=== PATIENT | female | born 1995 | race Caucasian/White ===

== ENCOUNTER 2021-02-27 17:45 | Emergency (ER) | payer MEDICAID, SELFPAY ==
[2021-02-27 18:02] VITALS: BP 108/72; PULSE 89; RESP 18; TEMP 36.9; O2SAT 97; BMI 27.3
--- NOTE | 2021-02-27 18:15 | ED_ITS ---
HPI - Recheck/Abnormal Lab/Rx General: Chief Complaint: Recheck/Abnormal Lab/Rx Stated Complaint: Havent had a period in 2 months Time Seen by Provider: 02/27/21 18:03 History of Present Illness: HPI narrative: 25-year-old female comes in today with complaints of no menstrual cycle in the last 2 months. Patient did have a positive home test last Saturday. Patient is concerned for a ectopic . Patient denies any pain or discomfort. Patient appears well. Patient did have a tubal ligation after her last delivery over March. Patient has had chronic pelvic pain for the last 6 months. Patient does report over the last 3 weeks some increase in right-sided pelvic discomfort. Review of Systems General: Reports: 10 or more systems reviewed and unremarkable except in HPI and below : Reports: other (Right-sided pelvic discomfort.) Physical Exam Const: COMMON NORMALS: patient oriented x3 GENERAL APPEARANCE: cooperative HENMT: COMMON NORMALS: normocephalic HEAD & SCALP: normocephalic Eye: GENERAL EYE: appearance normal, both eyes and all related structures Neck/C-Spine: COMMON NORMALS: full ROM Resp: COMMON NORMALS: normal respiratory effort EFFORT & INSPECTION: Yes able to speak in complete sentences Cardio: COMMON NORMALS: regular rate and regular rhythm RATE: regular rate RHYTHM: regular rhythm GI: OTHER: Tenderness noted in the suprapubic right lower pelvic area. : COMMON NORMALS: Yes no CVA tenderness BLADDER/KIDNEY EXAM: Yes no CVA tenderness Back/Pelvis: COMMON NORMALS: no CVA tenderness and thoracic and lumbar spine normal to inspection Extremity: COMMON NORMALS: normal to inspection Neuro: COMMON NORMALS: patient oriented x3 and moves all extremities Psych: COMMON NORMALS: mental status grossly normal and cooperative Skin: COMMON NORMALS: no rashes or lesions noted GENERAL SKIN EXAM: no rashes or lesions noted Course ED course: 1844, reviewed labs with patient reassuring that there is no sign of on her test in the emergency room. Patient is extremely worried and concerned about the right lower quadrant right pelvic pain. Patient reports discomfort since her surgery with increasing over the last 6 months. I recommended that we go ahead and do a CT scan of the abdomen pelvis for further evaluation. We also do some labs just to rule out any infection no other signs of abnormality. Vital Signs: Vital signs: Vital Signs Temperature 98.5 F 02/27/21 18:02 Pulse Rate 89 02/27/21 18:02 Respiratory Rate 18 02/27/21 18:02 Blood Pressure 108/72 02/27/21 18:02 Pulse Oximetry 97 02/27/21 18:02 MDM - Recheck/Abnormal Lab/Rx MDM Narrative: Medical decision making narrative: Patient comes in for no menstrual cycle in the last 2 months, right pelvic pain, and nausea. Patient was concerned that she may have had a ectopic due to having a recent tubal ligation in March of last year and having no period for the last 2 months with a positive home test. On exam abdomen is soft with some right lower quadrant abdominal tenderness. Vital signs are normal. Differential diagnosis includes but not limited to appendicitis, ovarian cyst, ectopic . hCG qualitative serum and urine were both negative. CMP and CBC were unremarkable. Urinalysis was negative for signs of infection. CT scan did show a 2.7 cm ovarian right cyst, and some inflammation of the small bowel. Believe patient probably has her pain due to her ovarian cyst which is also causing some irregularity in her menstrual cycles. Patient also has some enteritis which most likely is causing her nausea. I write for some Zofran to help with nausea, acetaminophen and ibuprofen for pain. Reviewed exam with patient with recommendations for follow-up. Patient reported understanding agreed to plan. Lab Data: Labs: Lab Results 02/27/21 02/27/21 02/27/21 18:25 18:25 19:26 WBC 8.3 10^3/uL 10^3/ uL (4.0-10.0) RBC 4.52 10^6/uL 10^6 /uL (4.1-5.3) Hgb 12.3 g/dL g/dL (11.5-15.3) Hct 38.4 % % (37.0-47.0) MCV 85.0 fl fl (81-99) MCH 27.2 pg L pg (28.0-34.0) MCHC 32.0 g/dL g/dL (30.0-36.0) RDW 14.0 % % (12.1-15.1) Plt Count 234 10^3/cmm 10^3 /cmm (130-400) MPV 12.2 fL H fL (7.4-10.4) Neut % (Auto) 64.2 % % Lymph % (Auto) 27.2 % % [place] % (Auto) 6.5 % % Eos % (Auto) 1.1 % % Baso % (Auto) 0.8 % % Neut # (Auto) 5.32 10^3/uL 10^3 /uL (1.8-7.7) Lymph # (Auto) 2.3 10^3/uL 10^3/ uL (0.8-4.8) [place] # (Auto) 0.5 10^3/uL 10^3/ uL (0.2-0.9) Eos # (Auto) 0.1 10^3/uL 10^3/ uL (0.0-0.8) Baso # (Auto) 0.1 10^3/uL 10^3/ uL (0.0-0.1) Nucleated RBC % (a uto) 0 % % Nucleated RBCs # 0.0 /100WBC /100W BC Sodium Potassium Chloride Carbon Dioxide Anion Gap BUN Creatinine GFR Calculation Glucose Calculated Osmolal ity Calcium Total Bilirubin AST ALT Alkaline Phosphata se Total Protein Albumin Globulin TSH HCG, Qual Urine Color Yellow (Yellow) Urine Appearance Clear (CLEAR) Urine pH 7 (5-7) Ur Specific Gravit y 1.010 (1.005-1.030) Urine Protein Neg (Negative) Urine Glucose (UA) Norm (Normal) Urine Ketones Negative (Negative) Urine Blood 3+ H (Negative) Urine Nitrate Negative (Negative) Urine Bilirubin Neg (Negative) Urine Urobilinogen Norm mg/dL mg/dL (Negative) Ur Leukocyte [place] ase Negative (Negative) Urine RBC 0-4 /hpf H /hpf (0-2) Urine WBC 0-4 /hpf H /hpf (0-5) Ur Squamous Epith Cells 10-15 /hpf H /hpf (0-5) Amorphous Sediment Not Reportable Urine Bacteria 1+ /hpf H /hpf (NONE) Urine Mucus 1+ /hpf /hpf Urine HCG, Qual Negative (Negative) 02/27/21 02/27/21 19:26 19:26 WBC RBC Hgb Hct MCV MCH MCHC RDW Plt Count MPV Neut % (Auto) Lymph % (Auto) [place] % (Auto) Eos % (Auto) Baso % (Auto) Neut # (Auto) Lymph # (Auto) [place] # (Auto) Eos # (Auto) Baso # (Auto) Nucleated RBC % (a uto) Nucleated RBCs # Sodium 135 mmol/L L mmol /L (136-145) Potassium 3.6 mmol/L mmol/L (3.5-5.1) Chloride 103 mmol/L mmol/L (98-107) Carbon Dioxide 21 mmol/L L mmol/ L (22-29) Anion Gap 14.6 (5-19) BUN 9 mg/dL mg/dL (6-20) Creatinine 0.7 mg/dL mg/dL (0.5-0.9) GFR Calculation 101.1 mL/min mL/m in (90-130) Glucose 77 mg/dL mg/dL (65-115) Calculated Osmolal ity 277 mOsm/kg L mOs m/kg (285-295) Calcium 8.7 mg/dL mg/dL (8.5-10.5) Total Bilirubin 0.3 mg/dL mg/dL (0.15-1.2) AST 9 U/L U/L (0-32) ALT 6 U/L U/L (0-33) Alkaline Phosphata se 72 IU/L IU/L (35-105) Total Protein 6.4 g/dL L g/dL (6.6-8.7) Albumin 4.0 g/dL g/dL (3.5-5.2) Globulin 2.4 g/dL g/dL (1.3-4.6) TSH 1.82 uIU/mL uIU/m L (0.27-4.20) HCG, Qual Negative (Negative) Urine Color Urine Appearance Urine pH Ur Specific Gravit y Urine Protein Urine Glucose (UA) Urine Ketones Urine Blood Urine Nitrate Urine Bilirubin Urine Urobilinogen Ur Leukocyte [place] ase Urine RBC Urine WBC Ur Squamous Epith Cells Amorphous Sediment Urine Bacteria Urine Mucus Urine HCG, Qual Discharge Plan Discharge Patient Disposition: Home Clinical Impression: Ovarian cyst, right, Enteritis Condition: Stable Prescriptions: New ondansetron 4 mg tablet,disintegrating 4 mg PO Q8H PRN (Reason: nausea and vomiting) 3 Days Qty: 7 RF: 0 Discharge Orders: Discharge ED (Routine); Ordered 02/27/21 Ordered By: Ritesh Blanco Discharge Diet: Usual diet Discharge Activity: Increase activity as tolerated Patient Instructions: Ovarian Cyst (ED), Gastroenteritis (ED) Activity Restrictions/Additional Instructions: Home and rest. Drink plenty of fluids. Use medication as needed for nausea. Enteritis usually may cause some nausea and diarrhea. Most people recover from it within 3 to 5 days. An ovarian cyst may persist up to several months. For your ovarian cyst you need to follow-up with your [facility] [employer] for further instruction. You may use acetaminophen and ibuprofen for pain. Monitor for high fever greater than 100.4, blood in vomit or stool, or new concerns. Coding Level of Care Code ED Registered Nurse Post Partum for Chg Fwd Exam Comprehensive
--- NOTE | 2021-02-27 18:56 | CTR_ITS ---
PROCEDURE INFORMATION: Exam: CT Abdomen And Pelvis With Contrast Exam date and time: 02/27/2021 6:56 PM Age: 25 years old Clinical indication: Abdominal pain; Prior surgery; Surgery type: Tubal, ; Patient HX: Abd pain since 2020; Additional info: Right pelvic pain TECHNIQUE: Imaging protocol: Computed tomography of the abdomen and pelvis with contrast. Radiation optimization: All CT scans at this facility use at least one of these dose optimization techniques: automated exposure control; mA and/or kV adjustment per patient size (includes targeted exams where dose is matched to clinical indication); or iterative reconstruction. Contrast material: OMNI 300; Contrast volume: 95 ml; Contrast route: INTRAVENOUS (IV); COMPARISON: [place] [address] 09/19/2015 9:07 PM RADIATION DOSE METRICS: Total DLP (mGy-cm): 1394.08 FINDINGS: Liver: Left hepatic lobe cyst. Gallbladder and bile ducts: Normal. No calcified stones. No ductal dilation. Pancreas: Normal. No ductal dilation. Spleen: Normal. No splenomegaly. Adrenal glands: Normal. No mass. Kidneys and ureters: Normal. No hydronephrosis. Stomach and bowel: Prominent fluid in the small bowel without dilation may reflect an enteritis. Appendix: No evidence of appendicitis. Intraperitoneal space: Unremarkable. No free air. No significant fluid collection. Vasculature: Unremarkable. No abdominal aortic aneurysm. Lymph nodes: Unremarkable. No enlarged lymph nodes. Urinary bladder: Unremarkable as visualized. Reproductive: Right ovary 2.7 cm cyst, likely follicular. Bones/joints: Unremarkable. No acute fracture. Soft tissues: Unremarkable. CT/CT abdomen pelvis w con* [id number] IMPRESSION: 1. Prominent fluid in the small bowel without dilation may reflect an enteritis. 2. Right ovary 2.7 cm cyst, likely follicular. 3. Left hepatic lobe cyst.
[2021-02-27 19:32] LABS: Basophils # 0.1 10^3/uL (0.0-0.1); Basophils % 0.8 %; Eosinophils # 0.1 10^3/uL (0.0-0.8); Eosinophils % 1.1 %; Hematocrit 38.4 % (37.0-47.0); Hemoglobin 12.3 g/dL (11.5-15.3); Lymphocytes # 2.3 10^3/uL (0.8-4.8); Lymphocytes % 27.2 %; Mean Corpuscular Hemoglobin 27.2 pg (28.0-34.0); Mean Platelet Volume 12.2 fL (7.4-10.4); Monocytes # 0.5 10^3/uL (0.2-0.9); Monocytes % 6.5 %; Neutrophils # 5.32 10^3/uL (1.8-7.7); Neutrophils % 64.2 %; Nucleated Red Blood Cells % 0 %; Platelet Count 234 10^3/cmm (130-400); Red Blood Count 4.52 10^6/uL (4.1-5.3); White Blood Count 8.3 10^3/uL (4.0-10.0)
[2021-02-27 19:49] LABS: HCG, Serum Qual Negative (Negative)
[2021-02-27 20:00] LABS: Alanine Aminotransferase 6 U/L (0-33); Alkaline Phosphatase 72 IU/L (35-105); Anion Gap 14.6 (5-19); Aspartate Amino Transferase 9 U/L (0-32); Blood Urea Nitrogen 9 mg/dL (6-20); Calcium 8.7 mg/dL (8.5-10.5); Carbon Dioxide 21 mmol/L (22-29); Chloride 103 mmol/L (98-107); Globulin 2.4 g/dL (1.3-4.6); Glomerular Filtration Rate 101.1 mL/min (90-130); Glucose 77 mg/dL (65-115); Osmolality Calculated 277 mOsm/kg (285-295); Potassium 3.6 mmol/L (3.5-5.1); Sodium 135 mmol/L (136-145); Thyroid Stimulating Hormone 1.82 uIU/mL (0.27-4.20); Total Bilirubin 0.3 mg/dL (0.15-1.2); Total Protein 6.4 g/dL (6.6-8.7)
[2021-02-27 20:36] LABS: Add Urine Culture? No; Add Urine Microscopic? YES; Bacteria Urine 1+ /hpf; Bilirubin Urine Neg (Negative); Blood Urine 3+ (Negative); Glucose Urine UA Norm (Normal); Ketones Urine Negative (Negative); Leukocyte Esterase Urine Negative (Negative); Mucus Urine 1+ /hpf; Nitrate Urine Negative (Negative); Protein Urine Neg (Negative); RBC Urine 0-4 /hpf (0-2); Urine Appearance Clear (CLEAR); Urine Color Yellow (Yellow); Urobilinogen Urine Norm (Negative); WBC Urine 0-4 /hpf (0-5); pH Urine 7 (5-7)
[2021-02-27] MEDS: ondansetron 4 MG Tablet PO (20:51)
[2021-02-27 21:14] VITALS: PULSE 81; RESP 16; O2SAT 98
== END 2021-02-27 21:14 | disposition home or self-care (01) ==
PROVIDERS: Emergency Provider Nurse Practitioner Family
DX: K52.9 Noninfective gastroenteritis and colitis, unspecified (principal); N83.201 Unspecified ovarian cyst, right side
CPT/HCPCS: 74177; 80053; 81001; 81025; 84443; 84703; 85025; 99283; Q0162